=== PATIENT | female | born 1980 | race African-American/Black ===

== ENCOUNTER 2018-04-15 11:05 | Emergency (ER) | payer OTHER ==
[2018-04-15] MEDS ORDERED: METHYLPREDNISOLONE ACETATE INJ 80 MG/1 ML VIAL IM ONE (11:38)
[2018-04-15] MEDS ORDERED: KETOROLAC TROMETHAMINE 60 MG/2 ML SDV IM ONE (11:38)
[2018-04-15] MEDS ORDERED: OXYCODONE-ACETAMINOPHEN 5-325 MG TABLET PO ONE (11:38)
[2018-04-15] MEDS ORDERED: DIAZEPAM 5 MG TABLET PO ONE (11:38)
--- NOTE | 2018-04-15 11:47 | ER Document Report ---
ED General - General Chief Complaint: Blood Pressure Problem Stated Complaint: BLOOD PRESSURE ISSUES Time Seen by Provider: 04/15/18 11:38 Primary Care Provider: ADELITA PAZ PA-C [Primary Care Provider] - Follow up as needed Mode of Arrival: Ambulatory Information source: Patient Notes: Chief complaint: Right facial pain History of complain:( obtained from----patient) 37 years old female with a history of trigeminal neuralgia, presents today with flareup of the trigeminal neuralgia with pain slurred speech difficulty in opening the mouth. And also lots of stress at home. 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 No fever chills or other constitutional symptoms. She was taking gabapentin 600 mg twice a day Onset: As above Duration: Last few days Severity: Severe Quality: Sharp Context: Trigeminal neuralgia Exacerbating factor and relieving factors: Any movement of the jaw REVIEW OF SYSTEMS: CONSTITUTIONAL : Denies fever, chills, or sweats. Denies recent illness. EENT: Denies eye, ear, throat, or mouth pain or symptoms. Denies nasal or sinus congestion or discharge. Denies throat, tongue, or mouth swelling or difficulty swallowing. CARDIOVASCULAR: Denies chest pain. Denies palpitations or racing or irregular heart beat. Denies ankle edema. RESPIRATORY: Denies cough, cold, or chest congestion. Denies shortness of breath, difficulty breathing, or wheezing. GASTROINTESTINAL: Denies distention. Denies nausea, vomiting, or diarrhea. Denies blood in vomitus, stools, or per rectum. Denies black, tarry stools. Denies constipation. GENITOURINARY: Denies difficulty urinating, painful urination, burning, frequency, blood in urine, or discharge. FEMALE GENITOURINARY: Denies vaginal bleeding, heavy or abnormal periods, irregular periods. Denies vaginal discharge or odor. MUSCULOSKELETAL: Denies back or neck pain or stiffness. Denies joint pain or swelling. SKIN: Denies rash, lesions or sores. HEMATOLOGIC : Denies easy bruising or bleeding. LYMPHATIC: Denies swollen, enlarged glands. NEUROLOGICAL: Denies confusion or altered mental status. Denies passing out or loss of consciousness. Denies dizziness or lightheadedness. Denies headache. Denies weakness or paralysis or loss of use of either side. Denies problems with gait or speech. Denies sensory loss, numbness, or tingling. Denies seizures. PSYCHIATRIC: Denies anxiety or stress. Denies depression, suicidal ideation, or homicidal ideation. ALL OTHER SYSTEMS REVIEWED AND NEGATIVE. PHYSICAL EXAMINATION: GENERAL: Seems to be in acute pain moderate to severe HEAD: Atraumatic, normocephalic. EYES: Pupils equal round and reactive to light, extraocular movements intact, conjunctiva are normal. ENT: Nares patent, oropharynx clear without exudates. Moist mucous membranes. Asymmetry of the face noted, sharp tenderness over the entire right side of the face noted even with the general touch. Could not fully open and close the jaw. NECK: Normal range of motion, supple without lymphadenopathy LUNGS: Breath sounds clear to auscultation bilaterally and equal. No wheezes r ales or rhonchi. HEART: Regular rate and rhythm without murmurs Examination of genitals-deferred Musculoskeletal: Normal range of motion, no pitting or edema. No cyanosis. NEUROLOGICAL: Cranial nerves grossly intact. Normal speech, normal gait. Normal sensory, motor exams PSYCH: Depressed mood, normal affect. Not suicidal or homicidal SKIN: Warm, Dry, normal turgor, no rashes or lesions noted. Dictation was performed using [employer] voice recognition software TRAVEL OUTSIDE OF THE [place] IN LAST 30 DAYS: No - HPI Notes: Dictated - Related Data Allergies/Adverse Reactions: No Known Allergies Allergy (Verified 04/15/18 11:08) Past Medical History - Social History Smoking Status: Never Smoker Frequency of alcohol use: None Lives with: Family Family History: Reviewed & Not Pertinent Patient has suicidal ideation: No Patient has homicidal ideation: No - Past Medical History Cardiac Medical History: Reports: Hx Heart Murmur - during Denies: Hx Atrial Fibrillation, Hx Congestive Heart Failure, Hx Coronary Artery Disease, Hx Heart Attack, Hx Hypercholesterolemia, Hx Hypertension, Hx Peripheral Vascular Disease Renal/ Medical History: Denies: Hx Ovarian Cysts, Hx Peritoneal Dialysis, Hx Pelvic Inflammatory Disease Malignancy Medical History: Denies: Hx Breast Cancer, Hx Cervical Cancer, Hx Ovarian Cancer Psychiatric Medical History: Reports: Hx Post Traumatic Stress Disorder Past Surgical History: Reports: Hx Section - X1. Denies: Hx Appendectomy, Hx Bowel Surgery, Hx Cholecystectomy, Hx Coronary Artery Bypass Graft, Hx Gastric Bypass Surgery, Hx Herniorrhaphy, Hx Hysterectomy, Hx Mastectomy, Hx Pacemaker, Hx Tonsillectomy, Hx Tubal Ligation Review of Systems - Review of Systems Notes: Dictated Physical Exam - Vital signs Vitals: Temp Pulse Resp BP Pulse Ox 99.5 F 84 16 152/102 H 100 04/15/18 11:18 04/15/18 11:18 04/15/18 11:18 04/15/18 11:18 04/15/18 11:18 - Notes Notes: Dictated Course - Re-evaluation Re-evalutation: 04/15/18 11:44 Given medications, with improvement discharge home - Vital Signs Vital signs: Temp Pulse Resp BP Pulse Ox 99.5 F 84 16 152/102 H 100 04/15/18 11:18 04/15/18 11:18 04/15/18 11:18 04/15/18 11:18 04/15/18 11:18 Discharge - Discharge Clinical Impression: Trigeminal neuralgia of right side of face Condition: Fair Disposition: HOME, SELF-CARE Instructions: Trigeminal Neuralgia ([facility]) Prescriptions: Diazepam [Valium 2 mg Tablet] 2 mg PO Q6HP PRN #15 tablet PRN Reason: Hydrocodone Bit/Acetaminophen [Hydrocodon-Acetaminophen 5-325] 1 each PO QID #20 tablet Naproxen 500 mg PO BID #30 tablet Prednisone 10 mg PO ASDIR PRN 12 Days tab.ds.pk PRN Reason: Referrals: ADELITA PAZ PA-C [Primary Care Provider] - Follow up as needed
[2018-04-15 13:12] VITALS: BP 126/86
== END 2018-04-15 13:12 | disposition home or self-care (01) ==
LOC: ER 11:05
DX: G50.0 Trigeminal neuralgia (principal); R47.81 Slurred speech; Z79.899 Other long term (current) drug therapy
CPT/HCPCS: 99283; J1885; J1040

== ENCOUNTER 2018-04-17 09:21 | Emergency (ER) | payer OTHER ==
[2018-04-17] MEDS ORDERED: RINGERS SOLUTION,LACTATED 1,000 ML IV ONE (10:01)
[2018-04-17] MEDS ORDERED: KETOROLAC TROMETHAMINE INJ/PF 30 MG/1 ML SDV IV ONE (10:01)
--- NOTE | 2018-04-17 10:04 | ER Document Report ---
ED Medical Screen (RME) - General Chief Complaint: Facial Swelling Stated Complaint: RIGHT FACIAL PAIN Time Seen by Provider: 04/17/18 09:46 Primary Care Provider: ADELITA PAZ PA-C [Primary Care Provider] - Follow up as needed Mode of Arrival: Ambulatory Information source: Patient Notes: This is a 37-year-old female with a long history of trigeminal neuralgia (has been evaluated by a neurologist in [place] and offered surgery at that time) who presents with exacerbations of her trigeminal neuralgia. She reports sharp shooting pain, burning to the right side of her face with a sensation of swelling. She describes tightness and slurred speech. She states that these episodes are precipitated by stress and at this point have been happening every day. She was evaluated 2 days ago and placed on pain medicine, steroids and muscle relaxer. She presents with persistent symptoms. Patient denies any focal motor weakness, gait disorder, numbness to the hands, feet. Patient states that the symptoms resolve when her headache, face pain subsides. TRAVEL OUTSIDE OF THE [place] IN LAST 30 DAYS: No - Related Data Allergies/Adverse Reactions: No Known Allergies Allergy (Verified 04/17/18 09:43) Past Medical History - Past Medical History Cardiac Medical History: Reports: Hx Heart Murmur - during Denies: Hx Atrial Fibrillation, Hx Congestive Heart Failure, Hx Coronary Artery Disease, Hx Heart Attack, Hx Hypercholesterolemia, Hx Hypertension, Hx Peripheral Vascular Disease Renal/ Medical History: Denies: Hx Ovarian Cysts, Hx Peritoneal Dialysis, Hx Pelvic Inflammatory Disease Malignancy Medical History: Denies: Hx Breast Cancer, Hx Cervical Cancer, Hx Ovarian Cancer Psychiatric Medical History: Reports: Hx Post Traumatic Stress Disorder Past Surgical History: Reports: Hx Section - X1. Denies: Hx Appendectomy, Hx Bowel Surgery, Hx Cholecystectomy, Hx Coronary Artery Bypass Graft, Hx Gastric Bypass Surgery, Hx Herniorrhaphy, Hx Hysterectomy, Hx Mastectomy, Hx Pacemaker, Hx Tonsillectomy, Hx Tubal Ligation Physical Exam - Vital signs Vitals: Temp Pulse Resp BP Pulse Ox 99.3 F 89 17 145/91 H 100 04/17/18 09:36 04/17/18 09:36 04/17/18 09:36 04/17/18 09:36 04/17/18 09:36 Course - Vital Signs Vital signs: Temp Pulse Resp BP Pulse Ox 99.3 F 89 17 145/91 H 100 04/17/18 09:36 04/17/18 09:36 04/17/18 09:36 04/17/18 09:36 04/17/18 09:36 Doctor's Discharge - Discharge Referrals: ADELITA PAZ PA-C [Primary Care Provider] - Follow up as needed
[2018-04-17] MEDS ORDERED: PROCHLORPERAZINE EDISYLATE INJ 10 MG/2 ML VIAL IV ONE (10:38)
[2018-04-17] MEDS ORDERED: ONDANSETRON HCL INJ/PF 4 MG/2 ML SDV IV ONE (10:38)
[2018-04-17 10:56] LABS: ABSOLUTE LYMPHOCYTES (AUTO) 0.6 10^3/uL (0.5-4.7); ABSOLUTE MONOCYTES (AUTO) 0.2 10^3/uL (0.1-1.4); ABSOLUTE NEUT (AUTO) 5.2 10^3/uL (1.7-8.2); BASOPHILS % (AUTO) 0.5 % (0-2); EOSINOPHILS % (AUTO) 0.1 % (0-6); HEMATOCRIT 38.1 % (36.0-47.0); HEMOGLOBIN 12.8 g/dL (12.0-15.5); LYMPHOCYTES % (AUTO) 10.3 % (13-45); MEAN CORPUSCULAR HEMOGLOBIN 27.1 pg (27.0-33.4); MEAN CORPUSCULAR HGB CONC 33.5 g/dL (32.0-36.0); MEAN CORPUSCULAR VOLUME 81 fl (80-97); PLATELET COUNT 339 10^3/uL (150-450); RED BLOOD COUNT 4.72 10^6/uL (3.72-5.28); RED CELL DISTRIBUTION WIDTH 14.3 % (11.5-14.0); SEGMENTED NEUTROPHILS % (AUTO) 85.1 % (42-78); TOTAL CELLS COUNTED % (AUTO) 100 %; WHITE BLOOD COUNT 6.1 10^3/uL (4.0-10.5)
[2018-04-17 11:04] LABS: ALANINE AMINOTRANSFERASE 27 U/L (9-52); ALKALINE PHOSPHATASE 66 U/L (38-126); ANION GAP 13 (5-19); ASPARTATE AMINO TRANSFERASE 24 U/L (14-36); BILIRUBIN,DIRECT 0.3 mg/dL (0.0-0.4); BILIRUBIN,TOTAL 0.4 mg/dL (0.2-1.3); BLOOD UREA NITROGEN 12 mg/dL (7-20); CALCIUM 9.5 mg/dL (8.4-10.2); CARBON DIOXIDE 26 mmol/L (22-30); CHLORIDE 102 mmol/L (98-107); GLUCOSE 94 mg/dL (75-110); POTASSIUM 4.4 mmol/L (3.6-5.0); SODIUM 140.6 mmol/L (137-145); TOTAL PROTEIN 8.2 g/dL (6.3-8.2)
--- NOTE | 2018-04-17 13:17 | RADIOLOGY REPORT (SQ) ---
EXAM DESCRIPTION: MRI HEAD COMBO COMPLETED DATE/TIME: 04/17/2018 12:53 pm REASON FOR STUDY: left facial droop facial pain hx of tri neuralgia COMPARISON: None. TECHNIQUE: Multiplanar imaging includes noncontrasted T1, T2, FLAIR, diffusion with ADC map and post gadolinium contrast T1 sequences. Images stored on PACS. Additional thin section axial and coronal T2, T1 precontrast, T1 post contrasted images through the c entral skullbase and along the course of the trigeminal nerves. CONTRAST TYPE AND DOSE: 15 mL Dotarem. RENAL FUNCTION: GFR > 60. LIMITATIONS: None. FINDINGS: ANATOMY: Low lying cerebellar tonsils are present, partially effacing CSF around the brain stem at the foramen magnum. This is compatible with Chiari 1 malformation and is best shown on axial image 4 and sagittal image 13. CEREBRUM: Sulci and gyri normal in size and contour. Normal white matter signal on FLAIR imaging. No evidence of hemorrhage, mass, or extraaxial fluid collection. No abnormal enhancement post contrast. POSTERIOR FOSSA: No signal alteration. No hemorrhage. No edema, masses, or mass effect. Internal alexander tory canals, cerebellopontine angles, mastoids normal. No enhancing lesions. No abnormal enhancement post contrast. DIFFUSION IMAGING: Negative for acute or subacute infarction. ORBITS: No masses. Globes normal. PARANASAL SINUSES: No fluid levels. Mucosa normal. OTHER: No other significant finding. IMPRESSION: LOW LYING CEREBELLAR TONSILS FROM CHIARI 1 MALFORMATION. OTHERWISE, UNREMARKABLE MRI OF THE BRAIN WITHOUT AND WITH INTRAVENOUS GADOLINIUM CONTRAST. EVIDENCE OF ACUTE STROKE: NO. TECHNICAL DOCUMENTATION: JOB ID: [id number] [employer]- All Rights Reserved Reading location - IP/workstation name: [email or web address]
--- NOTE | 2018-04-17 13:37 | ER Document Report ---
ED General - General Chief Complaint: Facial Swelling Stated Complaint: RIGHT FACIAL PAIN Time Seen by Provider: 04/17/18 09:46 Primary Care Provider: ADELITA PAZ PA-C [NO LOCAL MD] - Follow up as needed Mode of Arrival: Ambulatory TRAVEL OUTSIDE OF THE [place] IN LAST 30 DAYS: No - HPI Patient complains to provider of: Facial pain Notes: Patient coming in for increased facial pain with a history of trigeminal neuralgia. Patient was seen by our triage provider his notes provided below This is a 37-year-old female with a long history of trigeminal neuralgia (has been evaluated by a neurologist in [place] and offered surgery at that time) who presents with exacerbations of her trigeminal neuralgia. She reports sharp shooting pain, burning to the right side of her face with a sensation of swelling. She describes tightness and slurred speech. She states that these episodes are precipitated by stress and at this point have been happening every day. She was evaluated 2 days ago and placed on pain medicine, steroids and muscle relaxer. She presents with persistent symptoms. Patient denies any focal motor weakness, gait disorder, numbness to the hands, feet. Patient states that the symptoms resolve when her headache, face pain subsides. Patient upon my evaluation has slight slurred speech. Patient states She has pain to the right side of face however she does have some asymmetry to the left side of her face. Patient states this has occurred in the past when she has had issues with her trigeminal neuralgia. Patient states no improvement with the medications given to her upon her last visit. Patient denies any trauma. Patient has a difficult time opening her mouth however is speaking complete sentences. Patient resting company upon my evaluation. - Related Data Allergies/Adverse Reactions: No Known Allergies Allergy (Verified 04/17/18 09:43) Past Medical History - General Information source: Patient - Social History Smoking Status: Never Smoker Chew tobacco use (# tins/day): No Frequency of alcohol use: None Drug Abuse: None Family History: Reviewed & Not Pertinent Patient has suicidal ideation: No Patient has homicidal ideation: No - Past Medical History Cardiac Medical History: Reports: Hx Heart Murmur - during Denies: Hx Atrial Fibrillation, Hx Congestive Heart Failure, Hx Coronary Artery Disease, Hx Heart Attack, Hx Hypercholesterolemia, Hx Hypertension, Hx Peripheral Vascular Disease Renal/ Medical History: Denies: Hx Ovarian Cysts, Hx Peritoneal Dialysis, Hx Pelvic Inflammatory Disease Malignancy Medical History: Denies: Hx Breast Cancer, Hx Cervical Cancer, Hx Ovarian Cancer Psychiatric Medical History: Reports: Hx Post Traumatic Stress Disorder Past Surgical History: Reports: Hx Abdominal Surgery, Hx Section - X1. Denies: Hx Appendectomy, Hx Bowel Surgery, Hx Cholecystectomy, Hx Coronary Artery Bypass Graft, Hx Gastric Bypass Surgery, Hx Herniorrhaphy, Hx Hysterectomy, Hx Mastectomy, Hx Pacemaker, Hx Tonsillectomy, Hx Tubal Ligation Review of Systems - Review of Systems Constitutional: No symptoms reported EENT: Other - Facial pain Cardiovascular: No symptoms reported Respiratory: No symptoms reported Gastrointestinal: No symptoms reported Genitourinary: No symptoms reported Female Genitourinary: No symptoms reported Musculoskeletal: No symptoms reported Skin: No symptoms reported Hematologic/Lymphatic: No symptoms reported Neurological/Psychological: No symptoms reported -: Yes All other systems reviewed and negative Physical Exam - Vital signs Vitals: Temp Pulse Resp BP Pulse Ox 99.3 F 89 17 145/91 H 100 04/17/18 09:36 04/17/18 09:36 04/17/18 09:36 04/17/18 09:36 04/17/18 09:36 Interpretation: Normal - General General appearance: Appears well, Alert - HEENT Head: Normocephalic, Atraumatic Eyes: Normal Pupils: PERRL - Respiratory Respiratory status: No respiratory distress Chest status: Nontender Breath sounds: Normal Chest palpation: Normal - Cardiovascular Rhythm: Regular Heart sounds: Normal auscultation Murmur: No - Abdominal Inspection: Normal Distension: No distension Bowel sounds: Normal Tenderness: Nontender Organomegaly: No organomegaly - Back Back: Normal, Nontender - Extremities General upper extremity: Normal inspection, Nontender, Normal color, Normal ROM, Normal temperature General lower extremity: Normal inspection, Nontender, Normal color, Normal ROM, Normal temperature, Normal weight bearing. 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 This MRI was negative showing for a Chiari I malformation. Did update the patient on this finding patient did receive great relief with medications given ketorolac Compazine and Zofran request to be discharged home. MRI results were given to the patient patient was discharged - Vital Signs Vital signs: Temp Pulse Resp BP Pulse Ox 99.3 F 89 20 132/87 H 99 04/17/18 09:36 04/17/18 09:36 04/17/18 13:42 04/17/18 13:42 04/17/18 13:42 - Laboratory Result Diagrams: 04/17/18 10:10 04/17/18 10:10 Laboratory results interpreted by me: 04/17/18 10:10 RDW 14.3 H Seg Neutrophils % 85.1 H Lymphocytes % 10.3 L Discharge - Discharge Clinical Impression: Trigeminal neuralgia of right side of face, Chiari I malformation Condition: Good Disposition: HOME, SELF-CARE Instructions: Intravenous Compazine for Headaches ([facility]), Neurologist, Trigemi nal Neuralgia ([facility]) Additional Instructions: Your evaluation today shows signs of a Chiari I malformation. I will highly recommend that you follow-up with a neurologist we will continue with your home medications I will also add on Compazine Zofran to help out any headaches that you are having please return to the ER for any concerns. Prescriptions: Ondansetron [Zofran Odt 4 mg Tablet] 1 - 2 tab PO Q4H PRN #30 tab.rapdis PRN Reason: For Nausea/Vomiting Prochlorperazine Maleate [Compazine] 5 mg PO Q6 #30 tablet Referrals: ADELITA PAZ PA-C [NO LOCAL MD] - Follow up as needed
[2018-04-17 13:58] VITALS: BP 132/87
== END 2018-04-17 14:01 | disposition home or self-care (01) ==
LOC: ER 09:21
DX: G50.0 Trigeminal neuralgia (principal); G93.5 Compression of brain
CPT/HCPCS: 99284; 96361; 96374; 96375; 36415; 83735; 85025; 80053; 70553; A9576; J1885; J0780; J2405; J7120

== ENCOUNTER 2018-09-19 00:01 | Emergency (ER) | payer OTHER ==
[2018-09-19 00:14] VITALS: BP 143/87
== END 2018-09-19 01:48 | disposition left against medical advice (07) ==
LOC: ER 00:01
DX: Z53.21 Procedure and treatment not carried out due to patient leaving prior to being seen by health care provider (principal)

== ENCOUNTER 2019-03-04 13:15 | Emergency (ER) | payer OTHER ==
[2019-03-04] MEDS ORDERED: DIPHENHYDRAMINE HCL 50 MG/ML VIAL IV ONE (13:53)
[2019-03-04] MEDS ORDERED: KETOROLAC TROMETHAMINE INJ/PF 30 MG/1 ML SDV IV ONE (13:53)
[2019-03-04] MEDS ORDERED: NORMAL SALINE 1000 ML 1,000 ML IV ONE (13:53)
[2019-03-04] MEDS ORDERED: METOCLOPRAMIDE HCL INJ/PF 10 MG/2 ML SDV IV ONE (13:53)
--- NOTE | 2019-03-04 14:01 | ER Document Report ---
ED Medical Screen (RME) - General Chief Complaint: Headache Stated Complaint: LIGHTHEADED,HEADACHE Time Seen by Provider: 03/04/19 13:41 Primary Care Provider: LUKASZ STACY FNP-C [Primary Care Provider] - Follow up as needed Notes: 38-year-old female with trigeminal neuralgia and migraine headaches secondary to a Chiari I malformation presents to the emergency department with significant right sided trigeminal nerve pattern pain, severe headache, and feeling generally unwell. Patient states that she is having blurred vision and photophobia and is having difficulty focusing. Patient states that she has been slurring her words intermittently and difficulty finding words. Patient is under a considerable amount of stress and is a single mother of 5. NEURO: A &O X 3, normal speech, normal gailt, PERRL, EOMI, SILT, follows commands in all 4 extremities, CN V sensory deficit v1, v2, and v3, otherwise normal cranial nerve exam, no pronator drift, [id number] testing normal, rapid alternating hand movements normal, [id number] normal, international marketing coordinator strength 5/5 bilateral, 5/5 strength in both proximal and distal upper and lower extremities I have greeted and performed a rapid initial assessment of this patient. A comprehensive ED assessment and evaluation of the patient, analysis of test results and completion of medical decision making process will be conducted by an additional ED providers. TRAVEL OUTSIDE OF THE [place] IN LAST 30 DAYS: No - Related Data Allergies/Adverse Reactions: No Known Allergies Allergy (Verified 04/17/18 09:43) Past Medical History - Past Medical History Cardiac Medical History: Reports: Hx Heart Murmur - during Denies: Hx Atrial Fibrillation, Hx Congestive Heart Failure, Hx Coronary Artery Disease, Hx Heart Attack, Hx Hypercholesterolemia, Hx Hypertension, Hx Peripheral Vascular Disease Renal/ Medical History: Denies: Hx Ovarian Cysts, Hx Peritoneal Dialysis, Hx Pelvic Inflammatory Disease Malignancy Medical History: Denies: Hx Breast Cancer, Hx Cervical Cancer, Hx Ovarian Cancer Psychiatric Medical History: Reports: Hx Post Traumatic Stress Disorder Past Surgical History: Reports: Hx Abdominal Surgery, Hx Section - X1. Denies: Hx Appendectomy, Hx Bowel Surgery, Hx Cholecystectomy, Hx Coronary Artery Bypass Graft, Hx Gastric Bypass Surgery, Hx Herniorrhaphy, Hx Hysterectomy, Hx Mastectomy, Hx Pacemaker, Hx Tonsillectomy, Hx Tubal Ligation Physical Exam - Vital signs Vitals: Temp Resp BP 99.2 F 18 119/79 03/04/19 13:23 03/04/19 13:23 03/04/19 13:23 Course - Vital Signs Vital signs: Temp Pulse Resp BP Pulse Ox 99.2 F 18 119/79 03/04/19 13:23 03/04/19 13:23 03/04/19 13:23 Doctor's Discharge - Discharge Referrals: LUKASZ STACY, MUSIC ENGINEER-C [Primary Care Provider] - Follow up as needed
[2019-03-04] MEDS ORDERED: PROCHLORPERAZINE EDISYLATE INJ 10 MG/2 ML VIAL IV ONE (14:57)
--- NOTE | 2019-03-04 15:17 | ER Document Report ---
ED General - General Chief Complaint: Headache Stated Complaint: LIGHTHEADED,HEADACHE Time Seen by Provider: 03/04/19 13:41 Primary Care Provider: LUKASZ DAMICO FNP-C [Primary Care Provider] - Follow up in 1 week Mode of Arrival: Ambulatory Information source: Patient Notes: This 38-year-old female presents emergency department with history of trigeminal neuralgia and Chiari malformation. Reports she has had a headache to the right side that is typical of her trigeminal nerve pain. Denies fever vomiting diarrhea. Reports she has had increased stress at home she has 5 kids. She also works at a call center. She reports she usually takes Compazine Tegretol and naproxen for headaches but she needs to refill the prescription. She reports she has not taken anything today. She also reports that her primary care provider lukasz Damico has referred her to a neurologist but she is still waiting to be seen. Denies trauma. Reports this headache is on the right side of her head typical of her neuralgia pain. No obvious neuro deficits. Patient speaking in a clear voice facial features symmetric no slurring of speech. TRAVEL OUTSIDE OF THE [place] IN LAST 30 DAYS: No - HPI Onset: Yesterday Onset/Duration: Persistent Quality of pain: Achy Associated symptoms: None Exacerbated by: Denies Relieved by: Denies Similar symptoms previously: Yes Recently seen / treated by doctor: No - Related Data Allergies/Adverse Reactions: No Known Allergies Allergy (Verified 04/17/18 09:43) Past Medical History - General Information source: Patient Last Menstrual Period: Hysterectomy - Social History Smoking Status: Never Smoker Cigarette use (# per day): No Frequency of alcohol use: None Drug Abuse: None Occupation: Call center Lives with: Family Family History: Reviewed & Not Pertinent Patient has suicidal ideation: No Patient has homicidal ideation: No - Past Medical History Cardiac Medical History: Reports: Hx Heart Murmur - during Denies: Hx Atrial Fibrillation, Hx Congestive Heart Failure, Hx Coronary Artery Disease, Hx Heart Attack, Hx Hypercholesterolemia, Hx Hypertension, Hx Peripheral Vascular Disease Neurological Medical History: Reports: Other - Chiari malformation, trigeminal nerve pain Renal/ Medical History: Denies: Hx Ovarian Cysts, Hx Peritoneal Dialysis, Hx Pelvic Inflammatory Disease Malignancy Medical History: Denies: Hx Breast Cancer, Hx Cervical Cancer, Hx Ovarian Cancer Psychiatric Medical History: Reports: Hx Post Traumatic Stress Disorder Past Surgical History: Reports: Hx Abdominal Surgery, Hx Section - X1, Hx Hysterectomy. Denies: Hx Appendectomy, Hx Bowel Surgery, Hx Cholecystectomy, Hx Coronary Artery Bypass Graft, Hx Gastric Bypass Surgery, Hx Herniorrhaphy, Hx Mastectomy, Hx Pacemaker, Hx Tonsillectomy, Hx Tubal Ligation Review of Systems - Review of Systems Notes: Review HPI for review of systems., All other systems negative Physical Exam - Vital signs Vitals: Temp Resp BP 99.2 F 18 119/79 03/04/19 13:23 03/04/19 13:23 03/04/19 13:23 - General General appearance: Appears well, Alert In distress: None - HEENT Head: Normocephalic Eyes: Normal Conjunctiva: Normal Extraocular movements intact: Yes Eyelashes: Normal Pupils: PERRL Ears: Normal External canal: Normal Tympanic membrane: Normal Nasal: Normal Mouth/Lips: Normal Mucous membranes: Moist Pharynx: Normal Neck: Normal, Supple. No: Lymphadenopathy - Respiratory Respiratory status: No respiratory distress Chest status: Nontender Breath sounds: Normal Chest palpation: Normal - Cardiovascular Rhythm: Regular Heart sounds: Normal auscultation Murmur: No - Abdominal Inspection: Normal Distension: No distension Tenderness: Nontender - Extremities General upper extremity: Normal ROM, Normal strength General lower extremity: Normal ROM, Normal strength - Neurological Neuro grossly intact: Yes Cognition: Normal Orientation: AAOx4 [place] Coma Scale Eye Opening: Spontaneous [place] Coma Scale Verbal: Oriented [place] Coma Scale Motor: Obeys Commands [place] Coma Scale Total: 15 Speech: Normal Cranial nerves: Normal Motor strength normal: LUE, RUE, LLE, RLE 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 Reports she is having the same type of pain now. She has not taken her usual medications because she needs to get the prescriptions refilled. Her labs are unremarkable. UA was canceled because patient reports she is not been sexually active and she is not having any pain with void. She also denies nausea and vomiting diarrhea. She is alert and oriented answering all questions appropriate. No neuro deficit noted. She was treated with Compazine Toradol Reglan fluids here reports she is feeling much better 03/04/19 15:00 03/04/19 15:00 MCV 81 fl (80-97) 03/04/19 15:00 MCH 27.6 pg (27.0-33.4) 03/04/19 15:00 MCHC 34.1 g/dL (32.0-36.0) 03/04/19 15:00 RDW 13.9 % (11.5-14.0) 03/04/19 15:00 Seg Neutrophils % 66.9 % (42-78) 03/04/19 15:00 Chloride 102 mmol/L (98-107) 03/04/19 15:00 Carbon Dioxide 26 mmol/L (22-30) 03/04/19 15:00 Anion Gap 14 (5-19) 03/04/19 15:00 Est GFR ( Amer) > 60 (>60) 03/04/19 15:00 Glucose 79 mg/dL (75-110) 03/04/19 15:00 Calcium 10.2 mg/dL (8.4-10.2) 03/04/19 15:00 Total Bilirubin 0.5 mg/dL (0.2-1.3) 03/04/19 15:00 AST 30 U/L (14-36) 03/04/19 15:00 Alkaline Phosphatase 47 U/L (38-126) 03/04/19 15:00 Total Protein 8.2 g/dL (6.3-8.2) 03/04/19 15:00 Albumin 5.0 g/dL (3.5-5.0) 03/04/19 15:00 03/04/19 16:32 - Vital Signs Vital signs: Temp Pulse Resp BP Pulse Ox 98.6 F 82 18 104/54 L 100 03/04/19 16:59 03/04/19 16:59 03/04/19 13:23 03/04/19 16:59 03/04/19 16:59 - Laboratory Result Diagrams: 03/04/19 15:00 03/04/19 15:00 Discharge - Discharge Clinical Impression: Headache, History of trigeminal neuralgia Condition: Stable Disposition: HOME, SELF-CARE Instructions: Intravenous Compazine for Headaches ([facility]), Use of Diphenhydramine, Headache ([facility]), Intravenous (IV) Fluids ([facility]), Reglan ([facility]), Toradol Injection ([facility]), Trigeminal Neuralgia ([facility]) Additional Instructions: *You have been evaluated for headache history of trigeminal neuralgia Take your medications as prescribed *Follow up with your primary care provider within 1 week *Return to ED for worsening condition, changes, needs, concerns Forms: Return to Work Referrals: LUKASZ DAMICO, SIL-C [Primary Care Provider] - Follow up in 1 week
[2019-03-04 15:19] LABS: ABSOLUTE BASOPHILS # (AUTO) 0.1 10^3/uL (0.0-0.2); ABSOLUTE EOSINOPHILS # (AUTO) 0.1 10^3/uL (0.0-0.6); ABSOLUTE LYMPHOCYTES (AUTO) 1.2 10^3/uL (0.5-4.7); ABSOLUTE MONOCYTES (AUTO) 0.3 10^3/uL (0.1-1.4); ABSOLUTE NEUT (AUTO) 3.2 10^3/uL (1.7-8.2); HEMATOCRIT 41.8 % (36.0-47.0); HEMOGLOBIN 14.3 g/dL (12.0-15.5); LYMPHOCYTES % (AUTO) 25.4 % (13-45); MEAN CORPUSCULAR HEMOGLOBIN 27.6 pg (27.0-33.4); MEAN CORPUSCULAR HGB CONC 34.1 g/dL (32.0-36.0); MEAN CORPUSCULAR VOLUME 81 fl (80-97); MONOCYTES % (AUTO) 5.7 % (3-13); PLATELET COUNT 329 10^3/uL (150-450); RED BLOOD COUNT 5.18 10^6/uL (3.72-5.28); RED CELL DISTRIBUTION WIDTH 13.9 % (11.5-14.0); SEGMENTED NEUTROPHILS % (AUTO) 66.9 % (42-78); TOTAL CELLS COUNTED % (AUTO) 100 %; WHITE BLOOD COUNT 4.9 10^3/uL (4.0-10.5)
[2019-03-04 15:39] LABS: ALKALINE PHOSPHATASE 47 U/L (38-126); ANION GAP 14 (5-19); ASPARTATE AMINO TRANSFERASE 30 U/L (14-36); BILIRUBIN,DIRECT 0.3 mg/dL (0.0-0.4); BILIRUBIN,TOTAL 0.5 mg/dL (0.2-1.3); BLOOD UREA NITROGEN 13 mg/dL (7-20); CALCIUM 10.2 mg/dL (8.4-10.2); CARBON DIOXIDE 26 mmol/L (22-30); CHLORIDE 102 mmol/L (98-107); GLUCOSE 79 mg/dL (75-110); POTASSIUM 4.4 mmol/L (3.6-5.0); TOTAL PROTEIN 8.2 g/dL (6.3-8.2)
[2019-03-04 17:04] VITALS: BP 104/54
== END 2019-03-04 17:04 | disposition home or self-care (01) ==
LOC: ER 13:15
DX: R51 Headache (principal); Z86.69 Personal history of other diseases of the nervous system and sense organs
CPT/HCPCS: 99284; 96361; 96374; 96375; 36415; 85025; 80053; J1200; J1885; J2765; J0780; J7030

== ENCOUNTER 2019-03-08 23:42 | Emergency (ER) | payer OTHER ==
[2019-03-09 00:08] VITALS: BP 132/90
== END 2019-03-09 01:33 | disposition left against medical advice (07) ==
LOC: ER 23:42
DX: Z53.21 Procedure and treatment not carried out due to patient leaving prior to being seen by health care provider (principal)